=== PATIENT | female | born 1970 | race Caucasian/White ===

== ENCOUNTER 2022-06-06 13:06 | Outpatient (CLI) | payer OTHER, SELFPAY ==
--- NOTE | ~2022-06-06 | XR_ITS ---
EXAMINATION: UGI AIR CONTRAST W/ ESOPHAGRAM DATE: 01/09/08 09:43:00 INDICATION: Dysphagia TECHNIQUE: Thick and thin barium contrast with and without gas effervescent crystals were administere d orally. Fluoroscopic images of the esophagus, stomach, and proximal duodenum were obtained in vari ous projections. The hypopharynx was also imaged. Thereafter, overhead images of the thoracic esophag us and abdomen were performed. 0.9 minutes of fluoroscopy. 55 images. FINDINGS: The esophagus is normal in caliber, without mucosal lesions or strictures. There is normal esophagea l peristalsis. There is no hiatal hernia. The hypopharynx is normal. The gastric folds are normal. The proximal duodenum is also normal in appearance. IMPRESSION: 1. Normal esophagram and upper GI study. Reviewed, dictated and finalized at location A.
== END 2022-06-06 13:07 | disposition home or self-care (01) ==
LOC: ANHIMG 13:13
PROVIDERS: Visit Provider Surgery
DX: R13.10 Dysphagia, unspecified (principal); K21.9 Gastro-esophageal reflux disease without esophagitis
CPT/HCPCS: 74246

== ENCOUNTER 2022-08-27 03:07 | Day surgery (SDC) | payer OTHER, SELFPAY ==
[2022-08-14 14:07] VITALS: BMI 32.9
[2022-08-27 12:09] VITALS: BP 133/88; PULSE 117; RESP 18; TEMP 36.9; O2SAT 100
--- NOTE | 2022-08-27 12:17 | WPDANESEPPF ---
Anes - Initial Pre Proc Eval Procedure: Operation Date: 08/27/22 13:15 Proposed Procedures p Esophagogastroduodenoscopy EGD - Hal Alexander MD Date/Time: 08/27/22 12:17 Surgeon: Hal Alexander MD Pre Op Diagnosis: dysphagia Patient Data Age: 51 Gender: F Height: 1.7 m Weight: 97.6 kg Last Vital Signs Temp 36.9 C 08/27/22 12:09 Pulse 117 H 08/27/22 12:09 Resp 18 08/27/22 12:09 BP 133/88 08/27/22 12:09 Pulse Ox 100 08/27/22 12:09 O2 Del Method Room Air 08/27/22 12:09 Allergies Allergy/AdvReac Type Severity Reaction Status Date / Time adhesive tape Allergy Mild BLISTERS Verified 08/27/22 12:01 TO PLASTIC TAPE Home Medications Medication Instructions Recorded Confirmed Type amitriptyline 100 mg tablet 100 mg PO QHS 05/28/22 08/14/22 History atogepant 10 mg tablet (Qulipta) 10 mg PO DAILY 05/28/22 08/14/22 History cyclobenzaprine 10 mg tablet 10 mg PO TID PRN Muscle Spasm 05/28/22 08/14/22 History duloxetine 60 mg capsule,delayed 60 mg PO BID 05/28/22 08/14/22 History release (Cymbalta) oxycodone-acetaminophen 10 mg-325 1 tablet PO Q8H PRN Migraine 05/28/22 08/14/22 History mg tablet (Percocet) Headache pregabalin 75 mg capsule (Lyrica) 75 mg PO BID 05/28/22 08/14/22 History propranolol 40 mg tablet 40 mg PO Q12H 05/28/22 08/14/22 History ubrogepant 50 mg tablet (Ubrelvy) 50 mg PO ONCE PRN other 05/28/22 08/14/22 History bupropion HCl 150 mg 24 hr tablet, 150 mg PO DAILY 08/14/22 08/14/22 History extended release levothyroxine 125 mcg tablet 125 mcg PO DAILY 08/14/22 08/14/22 History omeprazole 40 mg capsule,delayed 40 mg PO BID 08/14/22 08/14/22 History release Patient hx anesthesia problems: none Family hx anesthesia problems: none Results Review: All pre-operative results and documents have been reviewed as part of the pre-operative evaluation. [facility] Past Medical History Medical History (Updated 08/27/22 @ 12:18 by Carmelo Angulo MD) GERD (gastroesophageal reflux disease) Hypothyroidism Surgical History Surgical History delivery delivered 2005 H/O lumpectomy 2001 H/O spinal fusion with anterior approach - 2008 Hx of removal of ovary and cyst Status post spinal disc removal 1999 Family History Family History Mother Heart disease Dementia Social History Social History Social History: everyday caffeine use. soda- 4 cans per day Smoking packs per day: 0.5 Smoking cigarettes per day: 10.0 Years smoked: 30 Smoking pack-years: 15.00 Smoking status: Current every day smoker Tobacco type: e-cigarettes/vaping Alcohol intake: former Alcohol use details: social Substance use: unknown Substance use type: does not use Living arrangements: with family Additional living arrangements comments: Patient is . Three people in the home. 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 Informed Consent: The patient's anesthetic plan and its attendant risks and benefits were discussed with the patient/family/POA. Questions were solicited and answers provided to the satisfaction of the patient/family/POA.
[2022-08-27] MEDS: LACTATED RINGERS 1,000 ML 150 ML IV CONT (12:22)
--- NOTE | 2022-08-27 12:39 | PM.HPGS ---
History of Present Illness History of Present Illness Consent: Risks, benefits, and alternatives have been discussed and questions answered. Patient agrees to proceed with procedure. Chief complaint: dysphagia Narrative: Beverly Rodriguez is a 51 year old female with persistent dysphagia, motility study showed hiatal hernia without any other major findings, had dilation several weeks ago but no major improvement. Using ppi twice daily. Review of Systems Constitutional: Constitutional: Denies headache(s) and Denies weakness Eyes: Eyes: Denies blurry vision ENT: Reports Normal hearing present, Denies headache(s) and Denies neck pain Cardiovascular: Cardiovascular: Denies chest pain and Denies dyspnea Respiratory: Respiratory: Denies dyspnea Gastrointestinal: Gastrointestinal: Reports no additional gastrointestinal complaints Genitourinary: Genitourinary: Denies dysuria Musculoskeletal: Musculoskeletal: Denies neck pain Integumentary/Breasts: Skin/Breast: Denies dry skin Neurologic: Reports Normal hearing present, Denies headache(s) and Denies weakness Psychiatric: Psychiatric: Denies anxiety Endocrine: Endocrine: Denies change in body appearance Hematologic/Lymphatic: Hematologic/Lymphatic: Denies easy bleeding Allergic/Immunologic: Allergic/Immunologic: Denies urticaria PMFSH Past Medical History Medical History (Updated 08/27/22 @ 12:18 by Carmelo Angulo MD) GERD (gastroesophageal reflux disease) Hypothyroidism Surgical History Surgical History delivery delivered 2005 H/O lumpectomy 2001 H/O spinal fusion with anterior approach - 2009 Hx of removal of ovary and cyst Status post spinal disc removal 1999 Family History Family History Mother Heart disease Dementia Social History Social History Social History: everyday caffeine use. soda- 4 cans per day Smoking packs per day: 0.5 Smoking cigarettes per day: 10.0 Years smoked: 30 Smoking pack-years: 15.00 Smoking status: Current every day smoker Tobacco type: e-cigarettes/vaping Alcohol intake: former Alcohol use details: social Substance use: unknown Substance use type: does not use Living arrangements: with family Additional living arrangements comments: Patient is . Three people in the home. 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 Gender identity (if verbalized by the patient): Female Spiritual care concerns: No Meds Home Medications and Allergies Home Medications Medication Instructions Recorded Confirmed Type amitriptyline 100 mg tablet 100 mg PO QHS 05/28/22 08/14/22 History atogepant 10 mg tablet (Qulipta) 10 mg PO DAILY 05/28/22 08/14/22 History cyclobenzaprine 10 mg tablet 10 mg PO TID PRN Muscle Spasm 05/28/22 08/14/22 History duloxetine 60 mg capsule,delayed 60 mg PO BID 05/28/22 08/14/22 History release (Cymbalta) oxycodone-acetaminophen 10 mg-325 1 tablet PO Q8H PRN Migraine 05/28/22 08/14/22 History mg tablet (Percocet) Headache pregabalin 75 mg capsule (Lyrica) 75 mg PO BID 05/28/22 08/14/22 History propranolol 40 mg tablet 40 mg PO Q12H 05/28/22 08/14/22 History ubrogepant 50 mg tablet (Ubrelvy) 50 mg PO ONCE PRN other 05/28/22 08/14/22 History bupropion HCl 150 mg 24 hr tablet, 150 mg PO DAILY 08/14/22 08/14/22 History extended release levothyroxine 125 mcg tablet 125 mcg PO DAILY 08/14/22 08/14/22 History omeprazole 40 mg capsule,delayed 40 mg PO BID 08/14/22 08/14/22 History release Allergies Allergy/AdvReac Type Severity Reaction Status Date / Time adhesive tape Allergy Mild BLISTERS Verified 08/27/22 12:01 TO PLASTIC TAPE Vital Signs Vital Signs - 24 hr 08/27/22 12:09 Temperature 98.4 F Pulse Rate 117 H Respiratory
[2022-08-27 13:03] VITALS: BP 104/67; PULSE 111; RESP 23; O2SAT 99
[2022-08-27 13:13] VITALS: BP 114/77; PULSE 99; RESP 25; O2SAT 100
[2022-08-27 13:23] VITALS: BP 117/78; PULSE 93; RESP 21; O2SAT 100
== END 2022-08-27 13:31 | disposition home or self-care (01) ==
PROVIDERS: Visit Provider Internal Medicine Gastroenterology
PROC: 0DJ08ZZ Inspection of Upper Intestinal Tract, Via Natural or Artificial Opening Endoscopic (ICD-10-PCS; CPT 43235; principal; 2022-08-27 13:15)
DX: R13.10 Dysphagia, unspecified (principal); K44.9 Diaphragmatic hernia without obstruction or gangrene; K21.00 Gastro-esophageal reflux disease with esophagitis, without bleeding; E03.9 Hypothyroidism, unspecified; Z98.1 Arthrodesis status; F17.290 Nicotine dependence, other tobacco product, uncomplicated; E66.9 Obesity, unspecified; Z68.33 Body mass index [BMI] 33.0-33.9, adult
CPT/HCPCS: 43239; 88305; J2704; J7120